=== PATIENT | female | born 1935 | race Caucasian/White ===

== ENCOUNTER 2018-07-29 10:08 | Day surgery (SDC) | payer OTHER, BC ==
[2018-07-25 10:26] LABS: EOSINOPHILS # (AUTO) 0.2 K/uL (0.0-0.4); HEMATOCRIT 41.7 % (36-48); HEMOGLOBIN 13.8 g/dL (12.0-16.0); MEAN CORPUSCULAR HEMOGLOBIN 34 pg (27-31); MONOCYTES # (AUTO) 0.6 K/uL (0.0-1.0); RED BLOOD CELL COUNT(AUTO) 4.09 MIL/uL (4.2-6.2); WHITE BLOOD COUNT (AUTO) 6.7 K/uL (4.8-10.8)
[2018-07-25 10:37] LABS: BASOPHILS % (AUTO) 0.5 % (0.0-2.0); EOSINOPHILS % (AUTO) 2.7 % (0.0-4.0); LYMPHOCYTES % (AUTO) 17.7 % (20.5-51.5); MEAN CORPUSCULAR HGB CONC 34 % (32-36); MEAN CORPUSCULAR VOLUME 100 fL (79.0-98.0); NEUTROPHILS % (AUTO) 70.1 % (40.0-70.0); PLATELET COUNT (AUTO) 222 K/uL (130-430); RED CELL DISTRIBUTION WIDTH 13.1 % (9.0-15.0)
[2018-07-25 10:38] LABS: ANION GAP 6 (5-15); CALCIUM 9.6 mg/dL (8.4-11.0); CHLORIDE 107 mmol/L (98-107); CREATININE 0.95 mg/dL (0.55-1.30); GLUCOSE 94 mg/dL (70-99); LYMPHOCYTES # (AUTO) 1.2 K/uL (1.0-5.5); NEUTROPHILS # (AUTO) 4.7 K/uL (1.8-7.7); POTASSIUM 5.1 mmol/L (3.5-5.1); SODIUM SERUM 141 mmol/L (136-145); UREA NITROGEN, BLOOD 19 mg/dL (8-21)
[2018-07-25 10:44] LABS: INR 1.1 (0.8-1.2); PROTHROMBIN TIME 10.9 SECS (9.5-12.5)
[~2018-07-29] VITALS: Ht 157.5 cm; Wt 51.7 kg
[2018-07-29] MEDS ORDERED: ONDANSETRON HCL 4 MG/2 ML VIAL IVP PRN (11:15)
[2018-07-29] MEDS ORDERED: fentaNYL CITRATE/PF 100 MCG/2 ML AMP IVP PRN ×2 (11:15)
[2018-07-29] MEDS ORDERED: fentaNYL CITRATE/PF 100 MCG/2 ML AMP ONE ×2 (13:25→13:47)
[2018-07-29] MEDS ORDERED: WATER FOR IRRIGATION,STERILE 1,000 ML IRRIG.SOLN IR ONE (13:25)
[2018-07-29] MEDS ORDERED: PROPOFOL 200MG/ 20ML VIAL (DIPRIVAN) IV ONE (13:25)
[2018-07-29] MEDS ORDERED: SEVOFLURANE 15 MIN GAS INH ONE (13:25)
[2018-07-29] MEDS ORDERED: MIDAZOLAM HCL 5 MG/ML VIAL (VERSED) IV ONE (13:25)
[2018-07-29] MEDS ORDERED: LR 1,000 ML IV.SOLN IV ONE (13:25)
[2018-07-29] MEDS ORDERED: CEFAZOLIN 2 GM IVPB PREMIX 50 ML IV ONE (13:25)
[2018-07-29] MEDS ORDERED: hydrALAZINE HCL 20 MG/ML VIAL IVP PRN (14:30)
[2018-07-29] MEDS ORDERED: hydrALAZINE HCL 20 MG/ML VIAL ONE (14:30)
[2018-07-29 15:16] VITALS: BP_SYST 154
[2018-07-29] MEDS ORDERED: MORPHINE SULFATE 10 MG/ML VIAL IM ONE (15:45)
== END 2018-07-29 15:55 | disposition home or self-care (01) ==
LOC: SDS 10:08 → SMU 10:11 → SDS 15:55
PROVIDERS: ATTEND Orthopaedic Surgery
DX: M21.612 Bunion of left foot (principal); M19.072 Primary osteoarthritis, left ankle and foot; Z79.899 Other long term (current) drug therapy; F17.200 Nicotine dependence, unspecified, uncomplicated; Z98.890 Other specified postprocedural states; K21.9 Gastro-esophageal reflux disease without esophagitis; M19.90 Unspecified osteoarthritis, unspecified site; M81.0 Age-related osteoporosis without current pathological fracture; Z85.3 Personal history of malignant neoplasm of breast; F32.9 Major depressive disorder, single episode, unspecified; F41.9 Anxiety disorder, unspecified
CPT/HCPCS: 28292; 36415; 71046; 80048; 85025; 85610; 85730; 93005; C1713 ×2; J0360; J0690; J2250; J2704; J3010; J7120

== ENCOUNTER 2020-10-14 13:20 | Outpatient (CLI) | payer OTHER, MEDICARE | END 2020-10-14 20:26 | disposition home or self-care (01) | LOC: SLB 13:20 | DX: Z01.818 Encounter for other preprocedural examination (principal); M72.0 Palmar fascial fibromatosis [Dupuytren]; J44.9 Chronic obstructive pulmonary disease, unspecified | CPT/HCPCS: 71046-TC ==

== ENCOUNTER 2021-02-12 18:13 | Emergency (ER) | payer OTHER, MEDICARE ==
[~2021-02-12] VITALS: Ht 157.5 cm; Wt 54.4 kg
[2021-02-12 18:15] VITALS: BP_SYST 134
[2021-02-12] MEDS ORDERED: LIDOCAINE 1%, 20 ML MDV 20 ML ONE (23:15)
[2021-02-12] MEDS ORDERED: BACTROBAN TP (23:25)
[2021-02-12 23:32] VITALS: BP_SYST 132
== END 2021-02-12 23:32 | disposition home or self-care (01) ==
LOC: SED 18:13
DX: S01.01XA Laceration without foreign body of scalp, initial encounter (principal); W01.10XA Fall on same level from slipping, tripping and stumbling with subsequent striking against unspecified object, initial encounter; Y93.89 Activity, other specified; Y92.89 Other specified places as the place of occurrence of the external cause; Y99.8 Other external cause status
CPT/HCPCS: 12001; 70450; 72125; 76376; 99285; J2001

== ENCOUNTER 2021-08-01 12:23 | Emergency (ER) | payer OTHER, MEDICARE, SELFPAY ==
[~2021-08-01] VITALS: Ht 160 cm; Wt 59.0 kg
[~2021-08-01 12:23] MED LIST: BACTROBAN TP
[2021-08-01 12:35] VITALS: BP_SYST 142
--- NOTE | 2021-08-01 12:39 | NUR ---
PT AMBULATED TO ER WITH, BROUGHT IN BY FROM HOME AFTER SUSTAINING A FALL. PT STATES SHE LOST HER BALANCE WHILE TAKING OUT TRASH IN HER DRIVEWAY, FELL BACKWARDS, HIT HER HEAD. DENIES LOC. ABRASION NOTED TO OCCIPITAL AREA, NO OPEN WOUND. DRY BLOOD NOTED NO FACIAL JAYLEN, PT'S NOSE IS BLEEDING, DENIES PAIN TO NOSE. KLEENEX OFFERED AND PT TILTING HEAD BACK AND BLEEDING STOPPED. PT AAOX4, IIN NAD. RESP EVEN AND UNLABORED, DENIES ANY CP OR SOB. SKIN W/D/I. IN WAITING AREA HE IS NOT VACCINATED. PT DOES NOT RECALL MEDS OR MED HISTORY AT THIS TIME. SAFTEY PRECUATIONS IN PLACE. WILL CONT TO MONITOR.
--- NOTE | 2021-08-01 12:41 | NUR ---
DR LUZ IN ROOM FOR EXAM
--- NOTE | 2021-08-01 13:00 | NUR ---
TAKEN TO CT SCAN DEPT VIA [facility].
--- NOTE | 2021-08-01 13:10 | NUR ---
BROUGHT PT BACK IN ROOM 5.
[2021-08-01] MEDS ORDERED: ONDANSETRON HCL 4 MG/2 ML VIAL IVP ONE ×3 (13:15→16:30)
[2021-08-01] MEDS ORDERED: NACL 0.9% 1,000 ML IV ONE (13:15)
--- NOTE | 2021-08-01 13:24 | NUR ---
IV SL INSERTED TO RT AC, BLOOD DRAWN AND SENT TO LAB.
--- NOTE | 2021-08-01 13:25 | NUR ---
PT AAOX4, RESP EVEN AND UNLABORED, NO ACTIVE BLEEDING AT THIS TIME.
[2021-08-01 13:29] LABS: BASOPHILS # (AUTO) 0.1 K/uL (0.0-0.2); BASOPHILS % (AUTO) 0.9 % (0.0-2.0); EOSINOPHILS # (AUTO) 0.1 K/uL (0.0-0.4); HEMATOCRIT 39.9 % (36-48); HEMOGLOBIN 13.5 g/dL (12.0-16.0); LYMPHOCYTES # (AUTO) 0.7 K/uL (1.0-5.5); LYMPHOCYTES % (AUTO) 8.9 % (20.5-51.5); MEAN CORPUSCULAR HEMOGLOBIN 32 pg (27-31); MEAN CORPUSCULAR HGB CONC 34 % (32-36); MEAN CORPUSCULAR VOLUME 95 fL (79.0-98.0); MONOCYTES # (AUTO) 0.5 K/uL (0.0-1.0); MONOCYTES % (AUTO) 7.1 % (1.7-9.3); NEUTROPHILS # (AUTO) 6.1 K/uL (1.8-7.7); NEUTROPHILS % (AUTO) 82.1 % (40.0-70.0); PLATELET COUNT (AUTO) 210 K/uL (130-430); WHITE BLOOD COUNT (AUTO) 7.5 K/uL (4.8-10.8)
[2021-08-01] MEDS ORDERED: cefTRIAXone 1 GM in D5W 50 ML IV ONE (13:30)
[2021-08-01 13:48] LABS: ANION GAP 6 (5-15); CALCIUM 9.2 mg/dL (8.4-11.0); CHLORIDE 101 mmol/L (98-107); CREATININE 1.15 mg/dL (0.55-1.30); GLUCOSE 134 mg/dL (70-99); POTASSIUM 3.9 mmol/L (3.5-5.1); SODIUM SERUM 139 mmol/L (136-145); UREA NITROGEN, BLOOD 17 mg/dL (8-21)
[2021-08-01] MEDS ORDERED: cefTRIAXone 1 GM VIAL ONE (13:49)
--- NOTE | 2021-08-01 13:50 | NUR ---
PT HAD EPISODE OF VOMITING BLOOD NOTED IN EMESIS. INFORMED.VO FOR REGLAN 10MG GIVEN.PT GIVEN O2 VIA NC FOR 2L NC.
[2021-08-01 13:54] LABS: ALANINE AMINOTRANSFERASE 19 U/L (12-78); ALBUMIN 3.9 g/dL (3.4-4.8); ASPARTATE AMINOTRANSFERASE 25 U/L (10-37); TOTAL BILIRUBIN 0.6 mg/dL (0.0-1.0)
[2021-08-01] MEDS ORDERED: METOCLOPRAMIDE HCL 10 MG/2 ML VIAL ONE (13:54)
[2021-08-01] MEDS ORDERED: METOCLOPRAMIDE HCL 10 MG/2 ML VIAL IVP ONE (14:00)
[2021-08-01 14:21] LABS: INR 1.1 (0.8-1.2); PROTHROMBIN TIME 11.7 SECS (9.5-12.5)
--- NOTE | 2021-08-01 14:22 | NUR ---
RECEIVED PT BACK, PT NOW IN ROOM 1, AT BEDSIDE. PT WITH EYES CLOSED, AROUSABLE TO LOUD VOICE. PT MAKAH TO RT EAR PER . ON L VIA NC @95%, WAS GIVEN REGLAN OR VOMITING, WILL CONT TO MONITOR CLOSELY. CALL IN FOR [facility] TRANSFER.
[2021-08-01] MEDS ORDERED: niCARdipine 25 MG in D5W 240 ML IV PRN (14:30)
[2021-08-01] MEDS ORDERED: levETIRAcetam 1,000 MG IV BAG 100 ML IV ONE (14:30)
[2021-08-01] MEDS ORDERED: COMMUNICATION ORDER XX ONE (14:30)
--- NOTE | 2021-08-01 14:56 | NUR ---
I CALLED PHARMACY FOR THE NICARDIPINE DRIP ORDERED.
--- NOTE | 2021-08-01 15:36 | NUR ---
PT WITH EYES CLOSED, IN NAD. VSS. NO SEIURE ACTIVITY NOTED. ON O2-4LVIA NC @97%.
[2021-08-01] MEDS ORDERED: MORPHINE 4 MG INJ. 4 MG/ML VIAL IVP ONE (16:30)
--- NOTE | 2021-08-01 16:30 | NUR ---
PT C/O MILD HEADACHE AND CONTINUED NAUSEA, DR COMBS NOTIFIED, MEDICATED ORDERED.
--- NOTE | 2021-08-01 17:02 | NUR ---
NOW AT BEDSIDE AGAIN, UPDATED ON PLAN OF CARE, VERBALIZED UNDERSTANDING.
--- NOTE | 2021-08-01 17:17 | NUR ---
REPORT GIVEN TO CHEN GRIMALDO AT [facility] ER. UPDATED ON PT'S STATUS, LABS, AND VITALS.
--- NOTE | 2021-08-01 18:40 | NUR ---
CALL FROM [facility] CANCELLING TRANSPORT DUE TO "NURSE GOING HOME FOR THE DAY"
--- NOTE | 2021-08-01 18:58 | NUR ---
EDSON RODRIGES WAS CALLED [facility] [employer] HELPER, ETA 15 MIN. PT AND PT'S UPDATED ON PLAN OF CARE.
--- NOTE | 2021-08-01 19:23 | NUR ---
REPORT GIVEN TO EDSON RODRIGES RN PAUL, PT STABLE FOR TRANSFER. ALL TRANSFER PAPERWORK GIVEN. WARREN.
[2021-08-01 19:24] VITALS: BP_SYST 120
== END 2021-08-01 19:24 | disposition short-term general hospital (02) ==
LOC: SED 12:23
DX: S06.6X9A Traumatic subarachnoid hemorrhage with loss of consciousness of unspecified duration, initial encounter (principal); S02.109A Fracture of base of skull, unspecified side, initial encounter for closed fracture; Z79.899 Other long term (current) drug therapy; Z20.822 Contact with and (suspected) exposure to COVID-19; W18.39XA Other fall on same level, initial encounter; Y93.89 Activity, other specified; Y92.89 Other specified places as the place of occurrence of the external cause; Y99.8 Other external cause status
CPT/HCPCS: 36415; 70450; 76376; 80053; 84484; 85025; 85610; 87426; 93005; 96361; 96365; 96368; 96375; 96376; 99285; J0696; J1953; J2270; J2405; J2765; J7030; J7060